=== PATIENT | female | born 1975 | race Caucasian/White ===

== ENCOUNTER 2017-04-03 16:49 | Emergency (ER) | payer BC, OTHER ==
--- NOTE | 2017-04-03 18:36 | PD ---
HPI Chief Complaint bleeding at 3:30p. Date Seen: Apr 03, 2017 Travel History International Travel<30 Days: No Contact w/Intl Traveler<30Days: No Known Affected Area: No History of Present Illness HPI This is a 41y/o at 24w who presents to the [facility] with reports of an episode of bright red bleeding at 3:30p. She denies heavy bleeding, leakage of fluid, contractions with reports of active movements. She has had a similar incidence of bleeding 3 weeks ago, however on exam no blood was noted. PT was told the bleeding was due to "a bad cough," she did not have an ultrasound at that time. Last intercourse 6 days ago. care out of town, no records for review, care complicated by: 1. AMA 2. previous c/s 3. poor imaging of heart, has repeat scan scheduled on 04/17. 4. RH + per patient, no records for review Para: 1 : 4 Miscarriage: 2 History Obstetric History Obstetric History 12/06/10 40w Primary c/s NRFHT Male [id number] Past Surgical History Narrative Surgical Previous c/s Family History Family History: Negative Social History Alcohol Use: No Tobacco Use: No Substance Abuse: No Allergies-Medications (Allergen,Severity, Reaction): Coded Allergies: No Known Allergies (Unverified , 04/03/17) Review of Systems Except as stated in HPI: all other systems reviewed are Neg Physical Exam Narrative GENERAL: Well-nourished, well-developed patient. SKIN: Warm and dry. HEAD: Normocephalic and atraumatic. EYES: No scleral icterus. No injection or drainage. ENT: No nasal drainage noted. Mucous membranes pink. Airway patent. NECK: Supple, trachea midline. No JVD. CARDIOVASCULAR: Regular rate and rhythm without murmurs, gallops, or rubs. RESPIRATORY: Breath sounds equal bilaterally. No accessory muscle use. BREASTS: Bilateral exam showed no masses , no retractions, no nipple discharge. ABDOMEN/GI: Abdomen soft, non-tender, bowel sounds present, no rebound, no guarding Gravid to 25 weeks size GENITOURINARY: External Genitalia: intact and normal in appearance Sterile speculum exam: no blood in vaginal vault, blood stained perineum, cervix thick/long FHT's: Category: appropriate for gestational age EXTREMITIES: No cyanosis or edema. BACK: Nontender without obvious deformity. No CVA tenderness. NEUROLOGICAL: Awake and alert. Motor and sensory grossly within normal limits. Five out of 5 muscle strength in all muscle groups. Normal speech. Data Data Vital Signs Reviewed: Yes MDM Narrative Course / MDM 41y/o at 24w -ama -previous c/s -poor imaging of heart Plan -d/c home -f/u tomorrow for OB diagnostics u/s Diagnosis Diagnosis: Primary Impression: Vaginal bleeding during , antepartum Additional Impression: 24 weeks gestation of Disposition: DISCHARGE HOME Condition: Good Patient Instructions: Movement (ED) Shannan Jaimes MD Apr 03, 2017 18:36
== END 2017-04-03 18:57 | disposition home or self-care (01) ==
LOC: HOBED 16:49
DX: O46.92 Antepartum hemorrhage, unspecified, second trimester (principal); Z3A.24 24 weeks gestation of pregnancy
CPT/HCPCS: 99284

== ENCOUNTER 2017-04-04 09:20 | Emergency (ER) | payer BC, OTHER ==
--- NOTE | 2017-04-04 09:39 | PD ---
HPI Chief Complaint Vaginal bleeding, f/u OB US for placental location Date Seen: Apr 04, 2017 Time Seen: 09:35 Travel History International Travel<30 Days: No Contact w/Intl Traveler<30Days: No Known Affected Area: No History of Present Illness HPI This is a 41y/o at 24w and 1d who presents to the OB ED as a follow-up for ultrasound for placental location after an episode of bright red vaginal bleeding. She has had a similar incidence of bleeding 3 weeks ago, however on sterile speculum exam yesterday no blood was noted. PT was told the bleeding was due to "a bad cough," she did not have an ultrasound at that time. Last intercourse 7 days ago. Pt reports some bright red blood when wiping this morning, but overall less than yesterday. She reports movement. She denies LOF and CTX. Para: 1 : 4 History Past Medical History Narrative Medical She has had a similar incidence of bleeding 3 weeks ago, however on exam no blood was noted. PT was told the bleeding was due to "a bad cough," she did not have an ultrasound at that time. Last intercourse 7 days ago. Obstetric History Obstetric History care out of town, no records for review, care complicated by: 1. AMA 2. previous c/s 3. poor imaging of heart, has repeat scan scheduled on 04/17. 4. RH + per patient, no records for review Para: 1 : 4 Miscarriage: 2 12/06/10 40w Primary c/s NRFHT Male [id number] Past Surgical History Narrative Surgical Previous c/s Family History Family History: Negative Social History Narrative Social History Patient is visiting from [place]. Alcohol Use: No Tobacco Use: No Substance Abuse: No Allergies-Medications (Allergen,Severity, Reaction): Coded Allergies: No Known Allergies (Unverified , 04/03/17) Physical Exam 97/56, 85, 15, 99.2 Narrative GENERAL: Well-nourished, well-developed patient. SKIN: Warm and dry. HEAD: Normocephalic and atraumatic. EYES: No scleral icterus. No injection or drainage. ENT: No nasal drainage noted. Mucous membranes pink. Airway patent. NECK: Supple, trachea midline. No JVD. CARDIOVASCULAR: Regular rate and rhythm without murmurs, gallops, or rubs. RESPIRATORY: Breath sounds equal bilaterally. No accessory muscle use. ABDOMEN/GI: Abdomen soft, non-tender, bowel sounds present, no rebound, no guarding Gravid to 24 weeks size FHT's: Category: Cat I Baseline: 150 Reactive: min Variability: moderate Decels: none EXTREMITIES: No cyanosis or edema. BACK: Nontender without obvious deformity. No CVA tenderness. NEUROLOGICAL: Awake and alert. Motor and sensory grossly within normal limits. Five out of 5 muscle strength in all muscle groups. Normal speech. Data Data Vital Signs Reviewed: Yes Orders Us Ob Limited (04/04/17 ) MDM Plan This is a 41y/o at 24w and 1d who presents to the OB ED as a follow-up for ultrasound for placental location after an episode of bright red vaginal bleeding. 1. Spotting and Monitor vital signs Monitor labor status Monitor heart rate OB ultrasound for placental recurrent location reassuring Urine dipstick negative for signs of infection Discussed with Dr. Bah. Diagnosis Diagnosis: Primary Impression: Spotting affecting in second trimester Additional Impression: Vaginal bleeding during , antepartum Ruled Out: Placenta previa Disposition: DISCHARGE HOME Condition: Good Jeramie Velez MD R1 Apr 04, 2017 09:38
[2017-04-04 09:40] VITALS: RESP 15; TEMP 99.2
[2017-04-04 09:41] VITALS: BP 97/56; PULSE 85
== END 2017-04-04 11:33 | disposition home or self-care (01) ==
LOC: HOBED 09:20
DX: O26.852 Spotting complicating pregnancy, second trimester (principal); Z3A.24 24 weeks gestation of pregnancy; O09.522 Supervision of elderly multigravida, second trimester
CPT/HCPCS: 76816; 99284